=== PATIENT | male | born 1955 | race Caucasian/White ===

== ENCOUNTER 2017-04-13 14:53 | Inpatient (IN) | payer OTHER ==
[2017-04-13] MEDS ORDERED: LORazepam 2 MG/ML SYRINGE IV STA (16:35)
[2017-04-13] MEDS ORDERED: SODIUM CHLORIDE 0.9% 1,000 ML IV STA ×3 (16:35→19:18)
[2017-04-13] MEDS ORDERED: ONDANSETRON 4 MG/2 ML VIAL IVP STA (16:47)
--- NOTE | 2017-04-13 16:49 | ED ---
General Adult HPI - General Source: patient, RN notes reviewed Mode of arrival: wheelchair Limitations: no limitations <Diogenes Glez - Last Filed: 04/13/17 19:56> <Scott Dean - Last Filed: 04/13/17 20:24> - General Chief complaint: Recheck/Abnormal Lab/Rx Stated complaint: no appetite/weakness Time Seen by Provider: 04/13/17 16:27 - History of Present Illness Initial comments: Patient 61-year-old male significant past medical history for diabetes, who presents emergency room today with a chief complaint of symptoms of decreased appetite feeling weak and short of breath. He states shortness of breath is with exertion. He states it gets up and moves around he became immediately begins to feel more short of breath. Patient states that he has had symptoms of decreased appetite and some symptoms of nausea he denies any vomiting. He does admit that he's had some diarrhea. He denies any other complaints. Patient denies any recent fever, chills, chest pain, back pain, abdominal pain, nausea or vomiting, numbness or tingling, dysuria or hematuria, constipation, headaches or visual changes, or any other complaints. (Diogenes Glez) - Related Data Home Medications Medication Instructions Recorded Confirmed No Known Home Medications [No 04/13/17 04/13/17 Known Home Medications] Allergies Allergy/AdvReac Type Severity Reaction Status Date / Time No Known Allergies Allergy Verified 04/13/17 16:43 Review of Systems ROS Other: All systems not noted in ROS Statement are negative. <Diogenes Glez - Last Filed: 04/13/17 19:56> ROS Other: All systems not noted in ROS Statement are negative. <Scott Dean - Last Filed: 04/13/17 20:24> ROS Statement: Those systems with pertinent positive or pertinent negative responses have been documented in the HPI. Past Medical History Past Medical History: Diabetes Mellitus History of Any Multi-Drug Resistant Organisms: None Reported Past Psychological History: No Psychological Hx Reported Smoking Status: Never smoker Past Alcohol Use History: Abuse, Daily, Heavy Past Drug Use History: None Reported <Diogenes Glez - Last Filed: 04/13/17 19:56> General Exam Limitations: no limitations <Diogenes Glez - Last Filed: 04/13/17 19:56> <Scott Dean - Last Filed: 04/13/17 20:24> - General Exam Comments Initial Comments: General: The patient is awake and alert, in no distress, and does not appear acutely ill. Eye: Pupils are equal, round and reactive to light, extra-ocular movements are intact. No nystagmus. There is normal conjunctiva bilaterally. No signs of icterus. Ears, nose, mouth and throat: There are moist mucous membranes and no oral lesions. Neck: The neck is supple, there is no tenderness or JVD. Cardiovascular: There is a regular rate and rhythm. No murmur, rub or gallop is appreciated. Respiratory: Lungs are clear to auscultation, respirations are non-labored, breath sounds are equal. No wheezes, stridor, rales, or rhonchi. Gastrointestinal: Soft, non-distended, non-tender abdomen without masses or organomegaly noted. There is no rebound or guarding present. No CVA tenderness. Bowel sounds are unremarkable. Musculoskeletal: Normal ROM, no tenderness. Strength 5/5. Sensation intact. Pulses equal bilaterally 2+. Neurological: A&O x 3. CN II-XII intact, There are no obvious motor or sensory deficits. Coordination appears grossly intact. Speech is normal. Skin: Skin is warm and dry and no rashes or lesions are noted. Psychiatric: Cooperative, appropriate mood & affect, normal judgment. : Stage 1 ulcer to the rectum. (Diogenes Glez) EKG Findings - EKG Comments: EKG Findings:: EKG performed at 1805: Shows normal sinus rhythm at 87 bpm. SD interval 130. QRS 90. QT/QTc 408/490. Prolonged QT. this change. No Acute ST changes. <Diogenes Glez - Last Filed: 04/13/17 19:56> Medical Decision Making - Lab Data Result diagrams: 04/13/17 18:00 04/13/17 18:00 <Diogenes Glez - Last Filed: 04/13/17 19:56> - Lab Data Result diagrams: 04/13/17 18:00 04/13/17 18:00 <Scott Dean - Last Filed: 04/13/17 20:24> - Medical Decision Making Decision-making. The patient's white count 33,000 hemoglobin 15 hematocrit of 41, INR is 1.1 the d-dimer 1.67. Potassium 3.8 with sodium 121 chloride 90 and CO2 12. His sugars 170. BUN 129 creatinine 4.5 dpt GFR 30. Total bilirubin 0.5. Troponin 0.09 amylase 79 lipase 338. Vital signs are stable upon arrival. The patient is being hydrated with normal saline 1 L. The case discussed with Dr. Dickson on-call gamemaster. He recommends normal saline with 2 A of bicarb added to the liter at 150 an hour , also consultation from general surgery for his buttocks that have [address] Antunez, personnel psychologist for acute pulmonary make renal failure. Patient states she's not had an alcoholic drink for over a week because she's not been able to get out of the house to buy it. She reports they've not been able to get into the home for the past week. Dr. Dean S x-ray was done and reviewed by radiologist his impression is there is nonspecific 2 cm opacity projecting over the lower thoracic vertebral bodies. Disc could simply represent summation of vascular shadows with degenerative disc hypertrophic changes but given the history and the fact that the there are no comparison radiographs would suggest nonurgent follow-up noncontrast chest CT characterization. Lungs otherwise clear pleural spaces are negative. No abnormal gas or collections. Cardiomediastinal silhouette bones and soft tissues are unremarkable. Impression; no acute cardiopulmonary process. However 2 cm opacity seen in the lateral radiograph for which nonemergent follow -up noncontrast chest CT is advised. As read by Dr. Master Berman X-ray of the abdomen was done reviewed radiologist impression nonspecific bowel pattern as discussed. No clyde bowel obstruction. Discussed Dr. Dickson patient admitted to his service with consultation from the Dr. Antunez (Scott Dean) - Lab Data Lab Results 04/13/17 04/13/17 04/13/17 Range/Units 18:00 18:00 18:00 WBC 33.5 H* (3.8-10.6) k/uL RBC 4.68 (4.30-5.90) m/uL Hgb 15.1 (13.0-17.5) gm/dL Hct 41.3 (39.0-53.0) % MCV 88.2 (80.0-100.0) fL MCH 32.2 (25.0-35.0) pg MCHC 36.5 (31.0-37.0) g/dL RDW 14.0 (11.5-15.5) % Plt Count 442 (150-450) k/uL Neutrophils % 91 % Lymphocytes % 3 % Monocytes % 4 % Eosinophils % 0 % Basophils % 0 % Neutrophils # 30.4 H (1.3-7.7) k/uL Lymphocytes # 1.1 (1.0-4.8) k/uL Monocytes # 1.2 H (0-1.0) k/uL Eosinophils # 0.0 (0-0.7) k/uL Basophils # 0.1 (0-0.2) k/uL Manual Slide Review Performed Toxic Granulation Present Toxic Vacuolation Present Large Platelets Present RBC Morphology Normal Hyperchromasia Slight PT (9.0-12.0) sec INR (<1.1) APTT (22.0-30.0) sec D-Dimer (<0.60) mg/L FEU Sodium 121 L (137-145) mmol/L Potassium 3.8 (3.5-5.1) mmol/L Chloride 90 L (98-107) mmol/L Carbon Dioxide 12 L (22-30) mmol/L Anion Gap 19 mmol/L BUN 129 H* (9-20) mg/dL Creatinine 4.59 H (0.66-1.25) mg/dL Est GFR (MDRD) Af Amer 16 (>60 ml/min/1.73 sqM) Est GFR (MDRD) Non-Af 13 (>60 ml/min/1.73 sqM) Glucose 170 H (74-99) mg/dL Calcium 8.8 (8.4-10.2) mg/dL Total Bilirubin 1.5 H (0.2-1.3) mg/dL AST 63 H (17-59) U/L ALT 61 (21-72) U/L Alkaline Phosphatase 112 (38-126) U/L Total Creatine Kinase 69 (55-170) U/L CK-MB (CK-2) 1.4 (0.0-2.4) ng/mL CK-MB (CK-2) Rel Index 2.0 Troponin I 0.029 (0.000-0.034) ng/mL Total Protein 7.3 (6.3-8.2) g/dL Albumin 3.2 L (3.5-5.0) g/dL Amylase 79 (30-110) U/L Lipase 338 H (23-300) U/L Serum Alcohol <10 mg/dL Acetone, Qual Negative (Negative) 04/13/17 Range/Units 18:00 WBC (3.8-10.6) k/uL RBC (4.30-5.90) m/uL Hgb (13.0-17.5) gm/dL Hct (39.0-53.0) % MCV (80.0-100.0) fL MCH (25.0-35.0) pg MCHC (31.0-37.0) g/dL RDW (11.5-15.5) % Plt Count (150-450) k/uL Neutrophils % % Lymphocytes % % Monocytes % % Eosinophils % % Basophils % % Neutrophils # (1.3-7.7) k/uL Lymphocytes # (1.0-4.8) k/uL Monocytes # (0-1.0) k/uL Eosinophils # (0-0.7) k/uL Basophils # (0-0.2) k/uL Manual Slide Review Toxic Granulation Toxic Vacuolation Large Platelets RBC Morphology Hyperchromasia PT 11.4 (9.0-12.0) sec INR 1.1 (<1.1) APTT 29.5 (22.0-30.0) sec D-Dimer 1.67 H (<0.60) mg/L FEU Sodium (137-145) mmol/L Potassium (3.5-5.1) mmol/L Chloride (98-107) mmol/L Carbon Dioxide (22-30) mmol/L Anion Gap mmol/L BUN (9-20) mg/dL Creatinine (0.66-1.25) mg/dL Est GFR (MDRD) Af Amer (>60 ml/min/1.73 sqM) Est GFR (MDRD) Non-Af (>60 ml/min/1.73 sqM) Glucose (74-99) mg/dL Calcium (8.4-10.2) mg/dL Total Bilirubin (0.2-1.3) mg/dL AST (17-59) U/L ALT (21-72) U/L Alkaline Phosphatase (38-126) U/L Total Creatine Kinase (55-170) U/L CK-MB (CK-2) (0.0-2.4) ng/mL CK-MB (CK-2) Rel Index Troponin I (0.000-0.034) ng/mL Total Protein (6.3-8.2) g/dL Albumin (3.5-5.0) g/dL Amylase (30-110) U/L Lipase (23-300) U/L Serum Alcohol mg/dL Acetone, Qual (Negative) Disposition Time of Disposition: 20:02 <Diogenes Glez - Last Filed: 04/13/17 19:56> <Scott Dean - Last Filed: 04/13/17 20:24> Clinical Impression: Hyponatremia, ARF (acute renal failure), Leukocytosis, Dehydration Disposition: ADMITTED IP TO THIS HOSP Condition: Stable Referrals: None,Stated [Primary Care Provider] - 1-2 days
[2017-04-13 18:26] LABS: Basophils # (A) 0.1 k/uL (0-0.2); Basophils % (A) 0 %; CH 33.7; CHCM 38.3; Eosinophils % (A) 0 %; HCT 41.3 % (39.0-53.0); HDW 2.45; HGB 15.1 gm/dL (13.0-17.5); Hyperchromasia Slight; Luc # (Auto) 0.64; Luc % (Auto) 2; Lymphocytes # (A) 1.1 k/uL (1.0-4.8); Lymphocytes % (A) 3 %; MCH 32.2 pg (25.0-35.0); MCHC 36.5 g/dL (31.0-37.0); MCV 88.2 fL (80.0-100.0); Mean Platelet Volume 10.1; Monocytes # (A) 1.2 k/uL (0-1.0); Monocytes % (A) 4 %; Neutrophils # (A) 30.4 k/uL (1.3-7.7); Neutrophils % (A) 91 %; RBC 4.68 m/uL (4.30-5.90); WBC (Perox) 34.94
[2017-04-13 18:29] LABS: WBC 33.5 k/uL (3.8-10.6)
[2017-04-13 18:34] LABS: INR 1.1 (<1.1); Partial Thromboplastin Time 29.5 sec (22.0-30.0); Prothrombin Time 11.4 sec (9.0-12.0)
[2017-04-13 18:44] LABS: ALT 61 U/L (21-72); AST 63 U/L (17-59); Alcohol <10 mg/dL; Alkaline Phosphatase 112 U/L (38-126); Amylase 79 U/L (30-110); Anion Gap 19 mmol/L; Calcium 8.8 mg/dL (8.4-10.2); Carbon Dioxide 12 mmol/L (22-30); Chloride 90 mmol/L (98-107); Glucose 170 mg/dL (74-99); Potassium 3.8 mmol/L (3.5-5.1); Sodium 121 mmol/L (137-145); Total Bilirubin 1.5 mg/dL (0.2-1.3); Total Protein 7.3 g/dL (6.3-8.2)
[2017-04-13 18:49] LABS: Creatine Kinase MB 1.4 ng/mL (0.0-2.4); Troponin I 0.029 ng/mL (0.000-0.034)
[2017-04-13 18:59] LABS: Large Platelets Present; Manual Review Performed; Toxic Granulation Present; Toxic Vacuolation Present
[2017-04-13 19:00] LABS: RBC Morphology Normal
[2017-04-13 19:02] LABS: Blood Urea Nitrogen 129 mg/dL (9-20); Non-African American GFR(MDRD) 13 (>60 ml/min/1.73 sqM)
[2017-04-13] MEDS ORDERED: LORazepam 2 MG/ML SYRINGE IV PRN (19:50)
[2017-04-13] MEDS ORDERED: NALOXONE 0.4 MG/ML 1 ML VIAL IV PRN (19:50)
[2017-04-13] MEDS ORDERED: ACETAMINOPHEN TAB 325 MG TAB PO PRN (19:50)
[2017-04-13] MEDS ORDERED: HYDROmorphone 1 MG/ML 1 ML SYRINGE IV PRN (19:50)
[2017-04-13] MEDS ORDERED: HYDROcodone/APAP 5-325MG 1 EACH TAB PO PRN (19:50)
[2017-04-13] MEDS ORDERED: SODIUM CHLORIDE 0.9% 1,000 ML with SODIUM BICARB (1 MEQ/ML) 100 ML IV STA ×2 (19:58)
--- NOTE | 2017-04-13 20:12 | XR ---
EXAMINATION TYPE: XR chest 2V DATE OF EXAM: 04/13/2017 COMPARISON: NONE HISTORY: Occasional dyspnea, decreased appetite TECHNIQUE: Frontal and lateral views of the chest are obtained. FINDINGS: There is a nonspecific 2 cm opacity projecting over the lower thoracic vertebral bodies. D isc could simply represent summation vascular shadows with degenerative disc hypertrophic changes, bu t given the history and the fact that there are no comparison radiographs - would suggest nonurgent f ollow-up noncontrast chest CT characterization. Lungs are otherwise clear. Pleural spaces are negative. No abnormal gas or fluid collections. Cardiom ediastinal silhouette and bones and soft tissues are unremarkable. IMPRESSION: 1. No acute cardiopulmonary process. 2. However, 2 cm opacity seen on the lateral radiograph for which nonemergent follow-up noncontrast c hest CT is advised.
--- NOTE | 2017-04-13 20:16 | XR ---
EXAMINATION TYPE: XR KUB DATE OF EXAM: 04/13/2017 COMPARISON: NONE HISTORY: Pain TECHNIQUE: 2 supine views FINDINGS: There is gaseous distention, without dilation, of small and large bowel loops throughout th e mid abdomen and upper quadrants - but no clyde bowel obstruction. There is no evident pneumatosis. However, this supine study cannot exclude pneumoperitoneum. IMPRESSION: Nonspecific bowel pattern as discussed.
[2017-04-13 20:41] LABS: Appearance,Urine Turbid (Clear); Bacteria,Urine Many /hpf; Bilirubin,Urine Negative (Negative); Glucose,Urine (UA) Negative (Negative); Ketones,Urine Negative (Negative); Leukocyte Esterase,Urine Large (Negative); Mucus,Urine Few /hpf; Nitrite,Urine Negative (Negative); PH, Urine 5.5 (5.0-8.0); Particle Count 54920; Protein,Urine 1+ (Negative); RBC,Urine 12 /hpf (0-5); Specific Gravity,Urine 1.014 (1.001-1.035); UA Billing (MACRO vs. MICRO) MICRO; Urobilinogen,Urine <2.0 mg/dL (<2.0); WBC,Urine >182 /hpf (0-5)
[2017-04-13 23:10] VITALS: BMI 21.9
[2017-04-14 07:19] LABS: Glucose,Whole Blood 152 mg/dL (75-99)
[2017-04-14 08:32] LABS: CH 32.9; CHCM 36.5; HCT 35.6 % (39.0-53.0); HDW 2.45; HGB 12.8 gm/dL (13.0-17.5); MCH 32.6 pg (25.0-35.0); MCV 90.5 fL (80.0-100.0); Mean Platelet Volume 9.6; RBC 3.93 m/uL (4.30-5.90); RDW 13.9 % (11.5-15.5)
[2017-04-14] MEDS: INSULIN LISPRO (humaLOG) 300 UNIT/3 ML VIAL SQ SCH ×4 (08:36→21:53)
[2017-04-14 08:40] LABS: WBC 25.3 k/uL (3.8-10.6)
[2017-04-14 08:49] LABS: Calcium 7.7 mg/dL (8.4-10.2); Potassium 3.6 mmol/L (3.5-5.1); Total Bilirubin 1.3 mg/dL (0.2-1.3)
[2017-04-14 10:55] LABS: Hemoglobin A1C 6.2 % (4.2-6.1)
[2017-04-14 12:01] LABS: Glucose,Whole Blood 213 mg/dL (75-99)
[2017-04-14 12:02] LABS: Add Differential Manual Differential
[2017-04-14 12:05] LABS: Nucleated Red Blood Cells 0 /100 WBC (0-0); Total Cells Counted 200
--- NOTE | 2017-04-14 17:38 | P.GSCN ---
History of Present Illness Consult date: 04/14/17 Reason for Consult: Rectal decubitus. History of present illness: Thank you very much for asking me to see Mr. Spencer. He is known to me from previous colon resection. He is a 61-year-old white male who about 8 years ago underwent a low anterior sigmoid resection for a localized malignancy. He had done well subsequently with no evidence of recurrent disease. His last colonoscopy was at least about 3-4 years ago. Was always accompanied by a parent during his office visits and the procedures. States the stent his been living on his own. He resorted to allow for drinking at least for the last 5-6 years now of alcohol up more than 12 pack a day of beer. He basically lives alone but has the uncle and aunts nearby. He has been managing all along. However he states over the last week and a half or so his appetite has been diminished. His been feeling very weak. Some nausea. Stools the have been semi-soft to 3 times a day but not a lot of diarrhea. He has been voiding fairly well. Again denies any abdominal pain. He was found when examined in the emergency room to have evidence of the renal failure. He was admitted for further management. He was found to have evidence of what looks like an ulcer in the anorectal area. She denies any rectal pain no blood. Does however has had some urgency and sometimes leakage the specimen his stools are liquid. Admits some mild weight loss over the last 2 months or so. He has felt so weak that is is mostly confined himself to the bed or couch Past history as above. Positive for diabetes mellitus. Ethanol abuse.. Social history as above. ALLERGIES none known. Systems review as above. Otherwise reviewed and unremarkable. On examination the patient is well-built. Weighs about 73.5 kg. Used to be quite dehydrated mucous membranes are dry. Color satisfactory. He is anicteric. No cervical lymphadenopathy head is normocephalic. Heart regular rhythm. Lungs are clear. Abdomen shows a midline scar. No mass or organomegaly or hernias. Abdomen is quite soft and benign. No guarding or rebound. No mass or hernia or organomegaly noted. Rectal exam reveals no definite the mass prostate is quite large but smooth. Has some excoriation and irritation of the perianal skin. No definite abscess or evidence of gross infection noted. Extremities and [employer] are unremarkable no focal deficits. Does have significant tremors especially his upper extremities. Labs were reviewed. WBC is quite elevated to over 33,000. Hemoglobin is normal. LFTs are abnormal with bilirubin of 1.5 has hyponatremia. Evidence of renal failure quite elevated BUN/creatinine creatinine. PT and PTT are normal. Abdominal films showed nonspecific bowel gas pattern. No free air or obstruction or ileus noted. Impression. Perianal skin excoriation probably secondary to irritation from frequent bowel movements constant wiping. Poor Hygiene. No evidence of abscess. Anorexia. Probably alcoholic hepatitis. Renal failure maybe prerenal sec secondary to dehydration. Diabetes mellitus. Recommendation. Local care of the perianal excoriation and irritation. No evidence of neoplasm or malignancy or abscess. Very with the nephrology consult. Continue rehydration. Consider the CT of the abdomen and pelvis when renal function has improved. We will be glad to follow along with you. Past Medical History Past Medical History: Diabetes Mellitus History of Any Multi-Drug Resistant Organisms: None Reported Additional Past Surgical History / Comment(s): colon sx in 2007 Past Psychological History: No Psychological Hx Reported Smoking Status: Never smoker Past Alcohol Use History: Abuse, Daily, Heavy Past Drug Use History: None Reported - Past Family History Mother Family Medical History: Diabetes Mellitus Father Family Medical History: Diabetes Mellitus Medications and Allergies Home Medications Medication Instructions Recorded Confirmed Type No Known Home Medications [No 04/13/17 04/13/17 History Known Home Medications] Allergies Allergy/AdvReac Type Severity Reaction Status Date / Time No Known Allergies Allergy Verified 04/13/17 16:43 Surgical - Exam Vital Signs Temp Pulse Resp BP Pulse Ox 97.5 F L 94 20 114/70 97 04/13/17 15:08 04/13/17 15:08 04/13/17 15:08 04/13/17 15:08 04/13/17 15:08 Results - Labs 04/14/17 07:46 04/14/17 07:46 Abnormal Lab Results - Last 24 Hours (Table) 04/13/17 04/13/17 04/13/17 Range/Units 18:00 18:00 18:00 WBC 33.5 H* (3.8-10.6) k/uL RBC (4.30-5.90) m/uL Hgb (13.0-17.5) gm/dL Hct (39.0-53.0) % Neutrophils # 30.4 H (1.3-7.7) k/uL Neutrophils # (Manual) (1.3-7.7) k/uL Lymphocytes # (Manual) (1.0-4.8) k/uL Monocytes # 1.2 H (0-1.0) k/uL Monocytes # (Manual) (0-1.0) k/uL D-Dimer 1.67 H (<0.60) mg/L FEU Sodium 121 L (137-145) mmol/L Chloride 90 L (98-107) mmol/L Carbon Dioxide 12 L (22-30) mmol/L BUN 129 H* (9-20) mg/dL Creatinine 4.59 H (0.66-1.25) mg/dL Glucose 170 H (74-99) mg/dL POC Glucose (mg/dL) (75-99) mg/dL Hemoglobin A1c (4.2-6.1) % Calcium (8.4-10.2) mg/dL Total Bilirubin 1.5 H (0.2-1.3) mg/dL AST 63 H (17-59) U/L Total Protein (6.3-8.2) g/dL Albumin 3.2 L (3.5-5.0) g/dL Lipase 338 H (23-300) U/L Urine Protein (Negative) Urine Blood (Negative) Ur Leukocyte Esterase (Negative) Urine RBC (0-5) /hpf Urine WBC (0-5) /hpf Urine WBC Clumps (None) /hpf Urine Bacteria (None) /hpf Urine Mucus (None) /hpf 04/13/17 04/14/17 04/14/17 Range/Units 20:16 07:05 07:46 WBC 25.3 H* (3.8-10.6) k/uL RBC 3.93 L (4.30-5.90) m/uL Hgb 12.8 L (13.0-17.5) gm/dL Hct 35.6 L (39.0-53.0) % Neutrophils # (1.3-7.7) k/uL Neutrophils # (Manual) 23.4 H (1.3-7.7) k/uL Lymphocytes # (Manual) 0.3 L (1.0-4.8) k/uL Monocytes # (0-1.0) k/uL Monocytes # (Manual) 1.6 H (0-1.0) k/uL D-Dimer (<0.60) mg/L FEU Sodium (137-145) mmol/L Chloride (98-107) mmol/L Carbon Dioxide (22-30) mmol/L BUN (9-20) mg/dL Creatinine (0.66-1.25) mg/dL Glucose (74-99) mg/dL POC Glucose (mg/dL) 152 H (75-99) mg/dL Hemoglobin A1c (4.2-6.1) % Calcium (8.4-10.2) mg/dL Total Bilirubin (0.2-1.3) mg/dL AST (17-59) U/L Total Protein (6.3-8.2) g/dL Albumin (3.5-5.0) g/dL Lipase (23-300) U/L Urine Protein 1+ H (Negative) Urine Blood Moderate H (Negative) Ur Leukocyte Esterase Large H (Negative) Urine RBC 12 H (0-5) /hpf Urine WBC >182 H (0-5) /hpf Urine WBC Clumps Many H (None) /hpf Urine Bacteria Many H (None) /hpf Urine Mucus Few H (None) /hpf 04/14/17 04/14/17 04/14/17 Range/Units 07:46 07:46 11:47 WBC (3.8-10.6) k/uL RBC (4.30-5.90) m/uL Hgb (13.0-17.5) gm/dL Hct (39.0-53.0) % Neutrophils # (1.3-7.7) k/uL Neutrophils # (Manual) (1.3-7.7) k/uL Lymphocytes # (Manual) (1.0-4.8) k/uL Monocytes # (0-1.0) k/uL Monocytes # (Manual) (0-1.0) k/uL D-Dimer (<0.60) mg/L FEU Sodium 128 L (137-145) mmol/L Chloride 97 L (98-107) mmol/L Carbon Dioxide 19 L (22-30) mmol/L BUN 113 H* (9-20) mg/dL Creatinine 3.82 H (0.66-1.25) mg/dL Glucose 137 H (74-99) mg/dL POC Glucose (mg/dL) 213 H (75-99) mg/dL Hemoglobin A1c 6.2 H (4.2-6.1) % Calcium 7.7 L (8.4-10.2) mg/dL Total Bilirubin (0.2-1.3) mg/dL AST (17-59) U/L Total Protein 6.0 L (6.3-8.2) g/dL Albumin 2.5 L (3.5-5.0) g/dL Lipase 440 H (23-300) U/L Urine Protein (Negative) Urine Blood (Negative) Ur Leukocyte Esterase (Negative) Urine RBC (0-5) /hpf Urine WBC (0-5) /hpf Urine WBC Clumps (None) /hpf Urine Bacteria (None) /hpf Urine Mucus (None) /hpf Diabetes panel 04/13/17 04/14/17 04/14/17 Range/Units 18:00 07:46 07:46 Sodium 121 L 128 L (137-145) mmol/L Potassium 3.8 3.6 (3.5-5.1) mmol/L Chloride 90 L 97 L (98-107) mmol/L Carbon Dioxide 12 L 19 L (22-30) mmol/L BUN 129 H* 113 H* (9-20) mg/dL Creatinine 4.59 H 3.82 H (0.66-1.25) mg/dL Glucose 170 H 137 H (74-99) mg/dL Hemoglobin A1c 6.2 H (4.2-6.1) % Calcium 8.8 7.7 L (8.4-10.2) mg/dL AST 63 H 42 (17-59) U/L ALT 61 53 (21-72) U/L Alkaline Phosphatase 112 86 (38-126) U/L Total Protein 7.3 6.0 L (6.3-8.2) g/dL Albumin 3.2 L 2.5 L (3.5-5.0) g/dL Calcium panel 04/13/17 04/14/17 Range/Units 18:00 07:46 Calcium 8.8 7.7 L (8.4-10.2) mg/dL Albumin 3.2 L 2.5 L (3.5-5.0) g/dL Pituitary panel 04/13/17 04/14/17 Range/Units 18:00 07:46 Sodium 121 L 128 L (137-145) mmol/L Potassium 3.8 3.6 (3.5-5.1) mmol/L Chloride 90 L 97 L (98-107) mmol/L Carbon Dioxide 12 L 19 L (22-30) mmol/L BUN 129 H* 113 H* (9-20) mg/dL Creatinine 4.59 H 3.82 H (0.66-1.25) mg/dL Glucose 170 H 137 H (74-99) mg/dL Calcium 8.8 7.7 L (8.4-10.2) mg/dL Adrenal panel 04/13/17 04/14/17 Range/Units 18:00 07:46 Sodium 121 L 128 L (137-145) mmol/L Potassium 3.8 3.6 (3.5-5.1) mmol/L Chloride 90 L 97 L (98-107) mmol/L Carbon Dioxide 12 L 19 L (22-30) mmol/L BUN 129 H* 113 H* (9-20) mg/dL Creatinine 4.59 H 3.82 H (0.66-1.25) mg/dL Glucose 170 H 137 H (74-99) mg/dL Calcium 8.8 7.7 L (8.4-10.2) mg/dL Total Bilirubin 1.5 H 1.3 (0.2-1.3) mg/dL AST 63 H 42 (17-59) U/L ALT 61 53 (21-72) U/L Alkaline Phosphatase 112 86 (38-126) U/L Total Protein 7.3 6.0 L (6.3-8.2) g/dL Albumin 3.2 L 2.5 L (3.5-5.0) g/dL
[2017-04-14 17:43] LABS: Glucose,Whole Blood 133 mg/dL (75-99)
[2017-04-14] MEDS: DIAZEPAM 2 MG TAB PO SCH ×2 (17:43→21:56)
[2017-04-14] MEDS: SODIUM CHLORIDE 0.9% 1,000 ML IV SCH ×2 (17:44→20:24)
--- NOTE | 2017-04-14 19:40 | HP ---
DATE OF ADMISSION: 04/13/2017 PRESENTING COMPLAINT: Weak, tired, nausea, vomiting. HISTORY OF PRESENTING COMPLAINT: This is a 61-year-old patient with no family doctor. Longstanding history of diabetes, who drinks about a 12-pack a day and has not drank for about 5 or 6 days. He is feeling tired, rundown. No appetite. Presents to the ER, had a low grade fever with white count of 33.5, found to be in severe renal failure with BUN of 129, creatinine of 4.59. Sodium down to 121 and urine infection. Patient has some tremors, tired, decreased appetite. REVIEW OF SYSTEMS: CONSTITUTIONAL: Weak, tired, decreased appetite. HEENT: None. RESPIRATORY: Some shortness of breath. CARDIOVASCULAR: None. GASTROINTESTINAL: None. GENITOURINARY: Decreased urine output. MUSCULOSKELETAL: None. DERMATOLOGICAL: None. HEMATOLOGICAL: None. LYMPHATIC: None. PSYCHIATRY: Anxious. NEUROLOGICAL: Some tremors. PAST HISTORY: Diabetes. PAST SURGICAL HISTORY: Colon surgery. SOCIAL HISTORY: Lives by himself. Drinks about a 12-pack a day. Denies smoking. No recreational drugs. Patient is not working anymore. FAMILY HISTORY: Diabetes. HOME MEDICATIONS: None. ALLERGIES: None. PHYSICAL EXAMINATION: Vital signs on presentation: Temperature 97.5, pulse 94, respirations 20, blood pressure 104/70, pulse ox 97% on room air. GENERAL APPEARANCE: Very unkempt lying in bed and tremors. EYES: Pupils equal. Conjunctivae normal. HEENT: External appearance of nose and ears normal. Oral cavity normal. NECK: JVD not raised. Mass not with the above. RESPIRATORY: Effort normal. LUNGS: Decreased breath sounds. CARDIOVASCULAR: First and second sounds normal. No edema. ABDOMEN: Soft, nontender. Liver and spleen not palpable. LYMPHATIC: No lymph node. PSYCHIATRY: Alert and oriented. Mood and affect ( ). MUSCULOSKELETAL: Generalized tremors are present. INVESTIGATIONS: White count 13.5, hemoglobin 15.1. Potassium 3.8. Sodium 121, BUN 129, creatinine 4.59, glucose 170, amylase 79, lipase 338. UA positive for leukocyte esterase, WBC. ASSESSMENT: 1. Acute urinary tract infection and possibly sepsis with some element of demargination from volume contraction. 2. Lipase increased likely from poor renal clearance in the setting of renal failure. 3. Hypoalbuminemia likely from protein calorie malnutrition, moderate. 4. Alcoholic hepatitis. AST is up to 63. 5. Acute severe renal failure, probably combination of prerenal acute tubular necrosis with poor oral intake. 6. Metabolic acidosis. 7. Hyponatremia, likely hypoosmolar in an alcoholic with probably diminished salt intake. PLAN: Patient was put on IV ceftriaxone. Patient will be given normal saline. Cut back on free fluid. Also add dose of valium 2 mg 3 times a day for tremors and a small dose of beta maryana. Encourage oral intake. Follow renal function closely. Care was discussed with the patient.
--- NOTE | 2017-04-14 20:16 | CONS ---
DATE OF CONSULTATION: 04/14/2017 REASON FOR CONSULTATION: Renal failure and hyponatremia. HISTORY OF PRESENT ILLNESS: Patient is a 61-year-old white male who was admitted to the hospital with complaints of weakness, shortness of breath, not feeling well. He was noted to have a serum creatinine of 4.59 mg/dL on admission and sodium of 121, maintained on normal saline and sodium improved to 128, creatinine down to 3.82. The patient states he has been voiding. He denies any prior history of kidney diseases. He does have a significant history of alcohol use. PAST MEDICAL HISTORY: Type 2 diabetes. ALLERGIES: None. SOCIAL HISTORY: Negative for smoking, but there is positive history of alcohol use. REVIEW OF SYSTEMS: As per HPI. Other systems negative. On examination, blood pressure is 131/70, heart rate of 72 per minute. Patient has been afebrile; however, he was noted to have a temp of 100.9 later on today. Examination of the heart: S1 and S2. Examination of the lungs: Bilateral breath sounds are heard. Abdomen is soft, nontender. Examination of lower extremities shows no edema. NUCLEAR EQUIPMENT RESEARCH ENGINEER exam is grossly intact. Labs show sodium 128, potassium 3.6, BUN 113, serum creatinine 3.82. Hemoglobin was at 12.8 g/dL. UA shows 1+ protein, more than 182 WBCs. Chest x-ray showed no major abnormalities except for 2 cm opacity seen over the lower thoracic vertebral body. ASSESSMENT: 1. Acute kidney injury, most likely prerenal, currently improved with IV fluids. Continue with aggressive IV hydration. Patient has been voiding well. He denies any prior history of kidney diseases; however, previous creatinine is not available for comparison. 2. Hypovolemic hyponatremia, improved with saline. Will continue with the saline for now. In view of patient having had a history of significant alcohol abuse, one would consider beer potomania as one of the etiologies for the hyponatremia, but the patient's serum sodium would not improve with saline in that condition. In the serum sodium does not improve, I will send a random urine sodium and urine osmolality but so far as it has significantly improved we are most likely dealing with hypervolemic hyponatremia. 3. Elevated white count and low-grade temperature mostly secondary to underlying urinary tract infection. We will make sure urine culture has been sent. It looks like patient has been started on Rocephin. PLAN: Check urine culture. Continue with the IV fluids. Repeat labs in the a.m. Continue with empiric antibiotics. Thank you for this consultation. Will continue to follow the patient with you during his hospitalization. Check an ultrasound of the abdomen as well.
[2017-04-14] MEDS: METOPROLOL TARTRATE 12.5 MG TAB PO SCH (20:24)
[2017-04-14 21:19] LABS: Glucose,Whole Blood 177 mg/dL (75-99)
[2017-04-15] MEDS: SODIUM CHLORIDE 0.9% 1,000 ML IV SCH (04:52)
[2017-04-15 07:27] LABS: Glucose,Whole Blood 133 mg/dL (75-99)
--- NOTE | 2017-04-15 08:45 | P.PN ---
Progress Note - Text The patient is feeling much better having received IV fluids. His tolerating regular diet. Denies any abdominal pain. No diarrhea rule out bowel movements the since his admission. Is passing a lot of flatus. Denies nausea or vomiting now. No rectal pain. Examination the patient is awake alert in no distress. Hydration is better. Abdomen is quite soft the nontender no masses or organomegaly. Impression general improvement. Blood works pending. Renal failure probably secondary to dehydration. Ethanol abuse. Hepatic insufficiency. Recommendation. Continued rehydration. Continued medical management. Continued medical management of his anal irritation. Encouraged ambulation.
[2017-04-15 09:11] LABS: Basophils % (A) 0 %; CH 32.6; Eosinophils % (A) 0 %; HCT 31.9 % (39.0-53.0); HDW 2.42; HGB 11.2 gm/dL (13.0-17.5); Luc # (Auto) 0.29; Luc % (Auto) 1; Lymphocytes # (A) 0.5 k/uL (1.0-4.8); Lymphocytes % (A) 2 %; MCH 31.9 pg (25.0-35.0); MCHC 35.2 g/dL (31.0-37.0); MCV 90.7 fL (80.0-100.0); Mean Platelet Volume 9.2; Monocytes # (A) 0.8 k/uL (0-1.0); Monocytes % (A) 4 %; Neutrophils # (A) 19.5 k/uL (1.3-7.7); Neutrophils % (A) 93 %; RBC 3.52 m/uL (4.30-5.90); RDW 13.9 % (11.5-15.5); WBC 21.1 k/uL (3.8-10.6); WBC (Perox) 22.57
[2017-04-15 09:13] LABS: Calcium 6.9 mg/dL (8.4-10.2); Potassium 3.4 mmol/L (3.5-5.1)
--- NOTE | 2017-04-15 09:45 | US ---
EXAMINATION TYPE: US kidneys/renal and bladder DATE OF EXAM: 04/15/2017 COMPARISON: NONE CLINICAL HISTORY: renal failure. Patient states no pain. Hx of colon cancer, surgery in 2007 EXAM MEASUREMENTS: Right Kidney: 13.2 x 9.0 x 6.2 cm Left Kidney: 11.3 x 5.9 x 5.2 cm Asked patient to urinate, unable to void. Right Kidney: Enlarged. Severe hydronephrosis Left Kidney: Severe hydronephrosis Bladder: Distended. Debris seen in posterior bladder. Patient unable to void. Bilateral Jets not seen Prostate seen, best visualized transversely. Shadowing echogenic focus seen. IMPRESSION: 1. Bilateral severe hydronephrosis. 2. Bladder is distended which contains a fluid fluid level which may represent debris. Correlate for infection or previous hemorrhage. 3. Limited assessment of the prostate which appears to demonstrate areas of calcification.
[2017-04-15] MEDS: METOPROLOL TARTRATE 12.5 MG TAB PO SCH ×2 (10:35→22:47)
[2017-04-15] MEDS: DIAZEPAM 2 MG TAB PO SCH ×3 (10:35→22:46)
[2017-04-15] MEDS: INSULIN LISPRO (humaLOG) 300 UNIT/3 ML VIAL SQ SCH ×4 (10:36→22:48)
[2017-04-15] MEDS: ENOXAPARIN 30 MG/0.3 ML SYRINGE SQ SCH (10:36)
[2017-04-15 11:16] LABS: Amorphous Sediment,Urine Rare /hpf; Appearance,Urine Turbid (Clear); Bacteria,Urine Many /hpf; Bilirubin,Urine Negative (Negative); Glucose,Urine (UA) Negative (Negative); Ketones,Urine Negative (Negative); Leukocyte Esterase,Urine Large (Negative); Nitrite,Urine Positive (Negative); PH, Urine 5.5 (5.0-8.0); Particle Count 47508; Protein,Urine 1+ (Negative); RBC,Urine 22 /hpf (0-5); Specific Gravity,Urine 1.013 (1.001-1.035); UA Billing (MACRO vs. MICRO) MICRO; Urobilinogen,Urine <2.0 mg/dL (<2.0); WBC,Urine >182 /hpf (0-5)
[2017-04-15 12:30] LABS: Glucose,Whole Blood 196 mg/dL (75-99)
[2017-04-15] MEDS ORDERED: OXYBUTYNIN CHLORIDE 5 MG TAB PO STA (14:35)
[2017-04-15 15:23] LABS: Potassium 3.3 mmol/L (3.5-5.1)
[2017-04-15] MEDS ORDERED: SODIUM CHLORIDE TAB 1 GM TAB PO STA (16:02)
[2017-04-15 17:09] LABS: Glucose,Whole Blood 133 mg/dL (75-99)
--- NOTE | 2017-04-15 19:52 | PN ---
DATE OF SERVICE: 04/15/2017 PRESENTING COMPLAINT: Weak, tired. INTERVAL HISTORY: Patient is admitted with acute urinary tract infection, severe sepsis, severe renal failure. Ultrasound has shown bilateral hydronephrosis. Patient has a To catheter in place. Looks a shade better. Sister is at the bedside. Review of systems done for constitutional, cardiovascular, GI, pulmonary; relevant findings as above. Patient ate 100% of his breakfast, a little bit of his lunch. Feeling extremely weak and tired. Current medications are reviewed and include IV ceftriaxone. On examination, temperature 96.9, pulse 59, respiration 16, blood pressure 149/87, pulse ox 98% on room air. GENERAL APPEARANCE: Lying in bed, tired appearing. EYES: Pupils equal. Conjunctivae normal. NECK: JVD not raised. Mass not palpable. RESPIRATORY: Effort normal. LUNGS: Decreased breath sounds. CARDIOVASCULAR: First and second sounds normal. No edema. ABDOMEN: Soft, nontender. Liver and spleen not palpable. PSYCHIATRY: Alert, oriented x3. Mood and affect tired -appearing. INVESTIGATIONS: White count 21.1, hemoglobin 9.2. Potassium 3.4. BUN 88, creatinine 3.07. UA positive. ASSESSMENT: 1. Acute urinary tract infection from possible sepsis, present on admission. 2. Hypoalbuminemic from protein calorie malnutrition, moderate. 3. Alcoholic hepatitis. 4. Acute renal failure with obstructive component and prerenal component with bilateral hydronephrosis. 5. Metabolic acidosis. 6. Hyponatremia likely hypoosmolar in an alcoholic with decreased salt intake. 7. Chronic alcoholism. 8. Medical debility, multifactorial. PLAN: Care was discussed with the patient's sister at the bedside. The patient's salt tablets have been added for the low sodium. Continue to follow electrolytes closely. Patient is already on ceftriaxone. Will follow.
[2017-04-15] MEDS ORDERED: POTASSIUM CHLORIDE ER 20 MEQ TAB.ER PO STA (20:24)
[2017-04-15 20:40] LABS: Glucose,Whole Blood 171 mg/dL (75-99)
--- NOTE | 2017-04-15 20:41 | PN ---
Patient is seen for follow-up for hyponatremia and acute kidney injury. He was admitted with a sodium of 121. Patient was maintained on IV fluids and his sodium came up to 128 after which he was restarted on saline at about 125 mL an hour. This morning his sodium went down to 123, the fluids were hep-locked earlier this morning and repeat sodium later on today was 126. Urine ( ) patient's ultrasound of the kidneys shows bilateral severe hydronephrosis and his bladder was quite distended with urine. A To catheter was placed and he has had about 1700 mL over the last 4 hours. There was some pus looking urine draining from the To catheter as well. On examination today, blood pressure was 121/71, heart rate 68 per minute. Patient is afebrile. Examination of the heart S1 and S2. Examination of the lungs: Bilateral breath sounds are heard. ABDOMEN: Soft, nontender. Examination of lower extremities shows no evidence of edema. COMPENSATION COORDINATOR exam is grossly intact. Labs revealed repeat serum sodium of 126, potassium 3.3. Hemoglobin was 11.2 on 04/15. ASSESSMENT: 1. Acute kidney acute kidney injury secondary to obstructive uropathy with an element of hypovolemia initially which has now improved. Patient has an indwelling To catheter. He has had large amount of urine output close to 1700 mL in the last 4 hours. Urology will be consulted. Continue with indwelling To catheter. 2. Hypokalemia will replace. 3. Hyponatremia initially hypovolemic and improved with normal saline. However, serum sodium worsened later on. This is highly suggestive of ( ). Patient's fluids will be hep-locked and I will start him on sodium chloride tablets. He is also encouraged to increase his oral protein intake. PLAN: Hep-Lock IV fluids. Start sodium chloride tabs. Consult urology. Continue with indwelling To catheter. Increase protein intake. Replace potassium.
[2017-04-15] MEDS: SODIUM CHLORIDE TAB 1 GM TAB PO SCH (22:46)
[2017-04-16 07:05] LABS: Glucose,Whole Blood 187 mg/dL (75-99)
--- NOTE | 2017-04-16 08:31 | P.PN ---
Progress Note - Text The patient continues to improve. His tolerating regular diet. Passing flatus. Denies abdominal pain. Ultrasound did show bilateral hydronephrosis with distention of the bladder. He now has a To catheter in place. He does admit to the dribbling or incomplete emptying his bladder. The last few months. On examination the patient is awake alert in no distress. Abdomen is soft and benign with no tenderness. Rectal irritation is much improved. No definite ulceration. Impression; renal failure. Probably secondary to the prostatic enlargement with bilateral hydronephrosis. Some degree of dehydration. Resolving rectal anal irritation. Recommendation; urology consultation. The bilateral hydronephrosis. Continued medical management. We will follow him now on an as-needed basis. He is advised to follow-up with me in the office in a few weeks after his discharge.
[2017-04-16] MEDS: SODIUM CHLORIDE TAB 1 GM TAB PO SCH ×2 (09:01→20:28)
[2017-04-16] MEDS: ENOXAPARIN 30 MG/0.3 ML SYRINGE SQ SCH (09:01)
[2017-04-16] MEDS: INSULIN LISPRO (humaLOG) 300 UNIT/3 ML VIAL SQ SCH ×4 (09:01→21:21)
[2017-04-16] MEDS: METOPROLOL TARTRATE 12.5 MG TAB PO SCH ×2 (09:01→20:28)
[2017-04-16] MEDS: DIAZEPAM 2 MG TAB PO SCH ×3 (09:11→21:21)
[2017-04-16 09:18] LABS: Calcium 7.4 mg/dL (8.4-10.2); Potassium 3.5 mmol/L (3.5-5.1)
[2017-04-16 12:41] LABS: Glucose,Whole Blood 167 mg/dL (75-99)
[2017-04-16] MEDS ORDERED: POTASSIUM CHLORIDE ER 20 MEQ TAB.ER PO STA (15:16)
--- NOTE | 2017-04-16 16:23 | PN ---
Patient is seen for followup for acute kidney injury and hyponatremia, initially hypovolemic and then worsened with normal saline, suggesting an element of beer potomania as well. Patient was found to have significant obstruction and bilateral hydronephrosis. To catheter was placed and he has had large amount of urine. Renal function has improved, with serum creatinine going down to 2.69 today from 4.59 on initial admission. Patient remains with a To catheter. He also has underlying urine infection with urine culture growing Gram-negative bacilli. On examination today, he is comfortable. Blood pressure is 109/60, heart rate 60 per minute. He is afebrile. EXAMINATION OF THE HEART: S1 and S2. EXAMINATION OF THE LUNGS: Bilateral breath sounds are heard. ABDOMEN: Soft, nontender. Examination of lower extremities shows no evidence of edema. SEAFOOD FISHERMAN exam is grossly intact. Labs show sodium 132, potassium 3.5, BUN 66, serum creatinine 2.69. ASSESSMENT: 1. Acute kidney injury secondary to obstructive uropathy with significant urine retention, currently improving with indwelling To catheter. Urology has been consulted. 2. Urinary tract infection with urine culture growing Gram-negative bacilli, maintained on Rocephin. 3. Hyponatremia, initially hypovolemic and then worsened with continued normal saline, suggesting an element of beer potomania. He is now maintained on sodium chloride 1 gram p.o. b.i.d., and sodium is up to 133 today. I will continue with the sodium chloride tablets and encourage increased oral intake. Avoid IV fluids for now. 4. Hypokalemia, status post replacement. PLAN: Continue sodium chloride. Will replace potassium and repeat labs in a.m.
[2017-04-16 17:16] LABS: Glucose,Whole Blood 143 mg/dL (75-99)
--- NOTE | 2017-04-16 20:15 | CONS ---
DATE OF CONSULTATION: 04/16/2017 REASON FOR CONSULTATION: Hydronephrosis and urinary retention. HISTORY: The patient is a 61-year-old male admitted through the emergency room on 04/13 for evaluation of shortness of breath, anorexia and loose bowel movements. At the time of admission, the patient had a white blood count of 33,500 and a urinalysis suggested a urinary tract infection. Sodium was 121. BUN was 129. Creatinine was 4.53. Lipase was 338. Patient was started on ceftriaxone. He has a history of alcohol abuse, and it was felt that at least a portion of his acute problem could be related to this. His creatinine fell to 3.82 on 04/14 and was 3.07 on 04/15. Urine sodium at that time was 19. Ultrasound of the kidneys and bladder on 04/15 showed relatively severe bilateral hydronephrosis and a distended bladder. A catheter was inserted and drained 1700 mL. Patient's creatinine today has fallen to 2.69. I was asked to see the patient due to the urinary retention and hydronephrosis. The patient denies any previous history of urinary retention. He says he normally voids every 4 to 5 hours during the day and 2 or 3 times at night. He describes a moderate urinary flow but is not always certain that he voids completely. Up until one week ago he was drinking 9 beers per day and had been drinking at approximately this level for the last year. He said he would experience periodic urge incontinence and had been wetting the bed for the last 4 to 6 weeks. He has no previous history of urinary tract infection, hematuria or urolithiasis. Patient's past medical history is significant in regard to diet-controlled diabetes mellitus. He has a history of colon cancer treated with low anterior resection by Dr. Harley approximately 8 years ago. He says he has had follow-up colonoscopy, and no recurrence has been noted. He has no history of hypertension, rheumatic fever, tuberculosis or hepatitis. Review of systems is significant mainly in regard to the above. The patient says over the last week instead of drinking beer he has been drinking 6 to 8 bottles of pop or water. SOCIAL HISTORY: The patient is single. He has not smoked since 1986. Physical exam reveals a 61-year-old male who is alert and oriented. Afebrile. Blood pressure 109/60. HEENT: No supraclavicular or cervical adenopathy. No scleral icterus. CHEST: Breathing is unlabored. ABDOMEN: No focal tenderness. There appears to be some slight hepatomegaly; however, there is no tenderness. GENITALIA: A urethral catheter is in place and is draining clear urine. Testicles are somewhat atrophic but are descended. RECTAL: Patient has been incontinent of stool, which is loose. His prostate is 1 to 2+ enlarged, smooth and benign in consistency. IMPRESSION: 1. Bilateral hydronephrosis secondary to urinary retention. By the patient's history, it is likely that he has been in retention for some time, as enuresis is relatively common in this setting. The patient's bladder overdistention is probably in part related to his large beer consumption. 2. Recent reduced appetite. It is unclear whether this could be related to pancreatitis. Patient's lipase appears to be elevated higher than expected just for his degree of renal failure. 3. Possible urinary tract infection. A urine culture is pending, but it was growing greater than 100,000 colonies of a Gram-negative nicanor. RECOMMENDATION: 1. Lipase will be rechecked to ensure that the patient does not have pancreatitis along with his other problems. 2. Once the patient's diarrhea and loose stools have subsided, I believe the patient would be better managed with self-catheterization. The patient will need to do the catheterization frequently enough so that his bladder does not distend beyond 15 to 20 ounces. At least at this time I would not suggest placing him on an alpha-maryana. 3. I am in agreement with the use of ceftriaxone pending results of the urine culture. Thank you for allowing me to participate in the care of this gentleman. CELESTE
[2017-04-16 20:42] LABS: Glucose,Whole Blood 178 mg/dL (75-99)
[2017-04-17 07:21] LABS: Glucose,Whole Blood 155 mg/dL (75-99)
--- NOTE | 2017-04-17 07:45 | PN ---
DATE OF SERVICE: 04/16/2017 PRESENTING COMPLAINT: Tired. INTERVAL HISTORY: Patient admitted with acute UTI. Severe sepsis, severe renal failure, bilateral hydronephrosis. The patient remains to have a To catheter in place. Making good urine output. Actually looks a bit better. Appetite is improving. Patient did get up and go to the bathroom once. Review of systems done for constitutional, cardiovascular, GI, pulmonary; relevant findings as above. Current medications are reviewed that include IV ceftriaxone. On examination, temperature 99.9, pulse 77, respiration 16, blood pressure 100/64, pulse ox 98% on room air. GENERAL APPEARANCE: Lying in bed, a bit more awake. EYES: Pupils equal. Conjunctivae normal. NECK: JVD not raised. Mass not palpable. RESPIRATORY: Effort normal. LUNGS: Decreased breath sounds. CARDIOVASCULAR: First and second sounds normal. No edema. ABDOMEN: Soft, nontender. Liver and spleen not palpable. PSYCHIATRY: Alert and oriented x3. Mood and affect normal. To catheter in place. INVESTIGATIONS: Sodium 132, potassium 3.5. BUN 66, creatinine 2.69. Accu-Cheks are noted. Lipase 753. ASSESSMENT: 1. Acute urinary tract infection with possible sepsis, present on admission. Cultures growing Klebsiella oxytoca. 2. Hypoalbuminemia from protein calorie malnutrition moderate from decreased oral intake. 3. Alcoholic hepatitis. 4. Acute renal failure with obstructive component and prerenal component with bilateral hydronephrosis, slow to respond. 5. Metabolic acidosis from renal failure. 6. Hyponatremia, likely hypoosmolar in an alcoholic, but decreased salt intake. 7. Chronic alcoholism. 8. Medical debility, multifactorial. 9. Bladder outlet obstruction. PLAN: Continue with medication and treatment plan. Patient encouraged to be out of bed. Follow electrolytes closely. Antibiotics are to continue.
[2017-04-17] MEDS: METOPROLOL TARTRATE 12.5 MG TAB PO SCH ×2 (08:03→21:04)
[2017-04-17] MEDS: DIAZEPAM 2 MG TAB PO SCH ×3 (08:03→21:04)
[2017-04-17] MEDS: SODIUM CHLORIDE TAB 1 GM TAB PO SCH (08:03)
[2017-04-17] MEDS: ENOXAPARIN 30 MG/0.3 ML SYRINGE SQ SCH (08:03)
[2017-04-17] MEDS: INSULIN LISPRO (humaLOG) 300 UNIT/3 ML VIAL SQ SCH ×4 (08:04→21:57)
[2017-04-17 08:44] LABS: Basophils % (A) 0 %; CH 32.4; CHCM 34.7; Eosinophils # (A) 0.1 k/uL (0-0.7); Eosinophils % (A) 1 %; HCT 34.1 % (39.0-53.0); HDW 2.49; HGB 11.7 gm/dL (13.0-17.5); Luc # (Auto) 0.21; Luc % (Auto) 3; Lymphocytes # (A) 0.6 k/uL (1.0-4.8); Lymphocytes % (A) 7 %; MCH 32.2 pg (25.0-35.0); MCHC 34.3 g/dL (31.0-37.0); MCV 93.6 fL (80.0-100.0); Mean Platelet Volume 8.9; Monocytes # (A) 0.4 k/uL (0-1.0); Monocytes % (A) 5 %; Neutrophils # (A) 6.7 k/uL (1.3-7.7); Neutrophils % (A) 84 %; RBC 3.64 m/uL (4.30-5.90); RDW 14.1 % (11.5-15.5); WBC 7.9 k/uL (3.8-10.6); WBC (Perox) 8.14
[2017-04-17 08:48] LABS: Calcium 7.4 mg/dL (8.4-10.2); Potassium 3.9 mmol/L (3.5-5.1)
[2017-04-17 12:19] LABS: Glucose,Whole Blood 135 mg/dL (75-99)
--- NOTE | 2017-04-17 13:51 | PN ---
Patient is seen for followup for hyponatremia and acute kidney injury secondary to obstructive uropathy. He has an indwelling To catheter with good urine output now. Renal function continues to improve. Sodium has improved to 135 today. Patient is maintained on sodium chloride tablets which I will decrease to once a day and eventually discontinue. On examination, blood pressure is 114/63, heart rate 73 per minute. He is afebrile. Examination of the heart, S1 and S2. Examination of the lungs, bilateral breath sounds are heard. Abdomen is soft, nontender. Examination of the lower extremities shows no evidence of edema. DIGITAL CIRCUIT DESIGNER exam is grossly intact. Labs show sodium 135, potassium 3.9, BUN 49, serum creatinine 2.19. Hemoglobin 11.7 g/dL. ASSESSMENT: 1. Acute kidney injury secondary to obstructive uropathy, currently with indwelling To catheter with improving renal function. 2. Urinary tract infection with urine culture growing Klebsiella, maintained on antibiotics. 3. Hyponatremia initially hypovolemic and then most likely secondary to beer potomania and renal failure, now improved. Patient is maintained on sodium chloride tablets twice a day. I will decrease that to once a day. He is encouraged to maintain good oral intake. PLAN: Decrease sodium chloride tablets to once a day and repeat labs in a.m. and maintain good oral intake.
--- NOTE | 2017-04-17 17:02 | P.PN ---
Progress Note - Text DATE OF SERVICE: 04/17/2017 PRESENTING COMPLAINT: Acute UTI, severe sepsis severe renal failure bilateral hydronephrosis. INTERVAL HISTORY: 61-year-old male with acute UTI, severe sepsis severe renal failure bilateral hydronephrosis. To catheter remains with good output. Patient looks better today comfortable in the bed, appetite is good eating almost 100% of his meals, walks to and from the bathroom and out of the hallway short distances, moving his bowels. REVIEW OF SYSTEMS: Done for constitutional ,cardiovascular, GI, pulmonary with relevant findings as above. CURRENT MEDICATIONS IV ceftriaxone, Lovenox, Ativan, Lopressor. PHYSICAL EXAM: VITAL SIGNS: 97.8, pulse 68 respiratory rate 18 blood pressure 106/66 oxygen saturation 98% on room air GENERAL APPEARANCE: . Lying in bed, appears comfortable. EYES: Pupils equal. Conjunctiva normal. NECK: JVD not raised. Mass not palpable. RESPIRATORY: Respiratory effort normal. Lungs diminished bases to auscultation. CARDIOVASCULAR: First and second sounds normal. No edema. ABDOMEN: Soft. Liver and spleen not palpable. Mild tenderness. No mass palpable. PSYCHIATRY: Alert and oriented x3. Mood and affect normal. INVESTIGATIONS: Hemoglobin 11.7, platelet count 258, sodium 135, BUN 49, creatinine 2.19 ASSESSMENT: Acute urinary tract infection with possible sepsis, present on admission. Cultures growing Klebsiella oxytoca Hypoalbuminemia from protein calorie malnutrition moderate from decreased oral intake. Alcoholic hepatitis. Acute renal failure with obstructive component and prerenal component of bilateral hydronephrosis slow to respond. Metabolic acidosis from renal failure. Hyponatremia likely hypoosmolar in an alcoholic but decrease salt intake. Chronic alcoholism. Medical debility, multifactorial. Bladder outlet obstruction. Hypokalemia PLAN: Continue with medication and treatment plan, follow electrolytes closely, antibiotic therapy continues. Discharge planning continues as well likely will go with family member upon discharge. TOP FRAME MAKER statement: Patient was seen and examined by nurse practitioner Janice Robbins in all elements of the case discussed with attending is Dr. Dickson
[2017-04-17 17:30] LABS: Glucose,Whole Blood 149 mg/dL (75-99)
[2017-04-17] MEDS: CEPHALEXIN 250 MG CAP PO SCH (21:04)
[2017-04-17 21:32] LABS: Glucose,Whole Blood 151 mg/dL (75-99)
--- NOTE | 2017-04-18 07:13 | PN ---
DATE OF SERVICE: 04/17/2017 ATTENDING NOTE: This patient was seen and examined by me earlier today. I reviewed the note of my nurse practitioner, Ms. Robbins. Reviewed, discussed, additional findings below. This is a patient with multiple problems including urinary tract infection, fever, sepsis, renal failure, bilateral hydronephrosis. Maintains to have a good urine output. Renal function is slowly improving. Did tolerate his diet. Did walk to the hallway. On examination, blood pressure 106/56. LUNGS: Decreased breath sounds. CARDIOVASCULAR: First and second sounds normal. Buttock area there is excoriation in the buttock cheeks. INVESTIGATIONS: BUN 49, creatinine 2.19. Accu-Cheks noted. ASSESSMENT: 1. Acute urinary tract infection, possible sepsis, growing Klebsiella oxytoca. 2. Acute renal failure with obstructive component and prerenal component with bilateral hydronephrosis, slow to respond. 3. Metabolic acidosis, renal failure. PLAN: Continue current and treatment plan. Patient encouraged to ambulate. Patient's Valium dose is being cut back from 1 mg to 3 times a day and also switch patient's IV ceftriaxone to Keflex. Continue to follow renal function closely.
[2017-04-18 07:40] LABS: Glucose,Whole Blood 106 mg/dL (75-99)
[2017-04-18] MEDS: INSULIN LISPRO (humaLOG) 300 UNIT/3 ML VIAL SQ SCH ×4 (08:00→21:35)
[2017-04-18 08:23] LABS: Calcium 7.4 mg/dL (8.4-10.2); Potassium 3.9 mmol/L (3.5-5.1)
[2017-04-18] MEDS: METOPROLOL TARTRATE 12.5 MG TAB PO SCH ×2 (08:51→21:35)
[2017-04-18] MEDS: CEPHALEXIN 250 MG CAP PO SCH ×3 (08:51→21:34)
[2017-04-18] MEDS: ENOXAPARIN 40 MG/0.4 ML SYRINGE SQ SCH (08:51)
[2017-04-18] MEDS: SODIUM CHLORIDE TAB 1 GM TAB PO SCH (08:52)
[2017-04-18] MEDS: DIAZEPAM 2 MG TAB PO SCH ×3 (08:54→21:34)
[2017-04-18 11:55] LABS: Glucose,Whole Blood 109 mg/dL (75-99)
--- NOTE | 2017-04-18 17:12 | P.PN ---
Progress Note - Text DATE OF SERVICE: 04/18/2017 PRESENTING COMPLAINT: Acute UTI, severe sepsis severe renal failure bilateral hydronephrosis. INTERVAL HISTORY: 61-year-old male with acute UTI, severe sepsis severe renal failure bilateral hydronephrosis. To catheter remains with good output. Patient does not look as good today, uncomfortable, having multiple loose stools, C. diff ordered , and will be sent. Able to tolerate some of his diet about 50%, ambulatory within the room given his current condition. REVIEW OF SYSTEMS: Done for constitutional ,cardiovascular, GI, pulmonary with relevant findings as above. CURRENT MEDICATIONS IV ceftriaxone, Lovenox, Ativan, Lopressor. PHYSICAL EXAM: VITAL SIGNS: Temperature 97.9, pulse 60 respiratory rate 18 blood pressure 125/68, oxygen saturation 98% on room air. GENERAL APPEARANCE: . Lying in bed, appears uncomfortable. EYES: Pupils equal. Conjunctiva normal. NECK: JVD not raised. Mass not palpable. RESPIRATORY: Respiratory effort normal. Lungs decreased bases to auscultation. CARDIOVASCULAR: First and second sounds normal. No edema. ABDOMEN: Soft. Liver and spleen not palpable. Mild tenderness. No mass palpable. PSYCHIATRY: Alert and oriented x3. Mood and affect normal. INTEGUMENT: Patient has a wound to his gluteal folds, bloody red tender for multiple wipings.. INVESTIGATIONS: Hemoglobin 11.7, platelet count 258, sodium 135, BUN 49, creatinine 2.19 ASSESSMENT: Acute urinary tract infection with possible sepsis, present on admission. Cultures growing Klebsiella oxytoca Hypoalbuminemia from protein calorie malnutrition moderate from decreased oral intake. Alcoholic hepatitis. Acute renal failure with obstructive component and prerenal component of bilateral hydronephrosis slow to respond. Metabolic acidosis from renal failure. Hyponatremia likely hypoosmolar in an alcoholic but decrease salt intake. Chronic alcoholism. Medical debility, multifactorial. Bladder outlet obstruction. Hypokalemia, resolved PLAN: Continue with medication and treatment plan, follow electrolytes closely, antibiotic therapy continues. Await results for C. diff test. Discharge planning continues as well likely will go with family member upon discharge. DISASSEMBLER statement: Patient was seen and examined by nurse practitioner Janice Robbins in all elements of the case discussed with attending is Dr. Dickson
[2017-04-18 17:24] LABS: Glucose,Whole Blood 103 mg/dL (75-99)
[2017-04-18 20:53] LABS: Glucose,Whole Blood 146 mg/dL (75-99)
[2017-04-19 07:42] LABS: Glucose,Whole Blood 181 mg/dL (75-99)
[2017-04-19] MEDS: METOPROLOL TARTRATE 12.5 MG TAB PO SCH ×2 (07:49→21:31)
[2017-04-19] MEDS: INSULIN LISPRO (humaLOG) 300 UNIT/3 ML VIAL SQ SCH ×4 (07:49→21:32)
[2017-04-19] MEDS: DIAZEPAM 2 MG TAB PO SCH ×3 (07:49→21:31)
[2017-04-19] MEDS: SODIUM CHLORIDE TAB 1 GM TAB PO SCH (07:49)
[2017-04-19] MEDS: ENOXAPARIN 40 MG/0.4 ML SYRINGE SQ SCH (07:49)
[2017-04-19] MEDS: CEPHALEXIN 250 MG CAP PO SCH ×3 (07:49→21:31)
[2017-04-19 09:28] LABS: Calcium 7.4 mg/dL (8.4-10.2); Potassium 3.5 mmol/L (3.5-5.1)
[2017-04-19 12:42] LABS: Glucose,Whole Blood 148 mg/dL (75-99)
--- NOTE | 2017-04-19 15:34 | PN ---
Patient is seen for follow-up for acute kidney injury secondary to obstructive uropathy and hyponatremia. His sodium level has improved. Patient is maintained on sodium chloride tablets which was discontinued. He was initially hypovolemic and then a component of ( ) was also present. This has resolved now with administration of saline and sodium chloride tabs. His renal function has improved significantly as well with insertion of To catheter. He currently has a urinary tract infection with Klebsiella oxytocin and is maintained on antibiotics. On examination, blood pressure is 104/63, heart rate 52 per minute. He is afebrile. Examination of the heart S1 and S2. Examination of the lungs: Bilateral breath sounds are heard. ABDOMEN: Soft, nontender. Examination of lower extremities shows no evidence of edema. 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 Labs show sodium 138, potassium 3.5, BUN 33, serum creatinine 1.82. ASSESSMENT: 1. Acute kidney injury secondary to obstructive uropathy with bilateral hydronephrosis, currently with indwelling To catheter, which patient will need to continue. He will follow up with urology as outpatient. 2. Hyponatremia initially hypovolemic on admission and then worsened with saline. There was a component of ( ) this has now resolved, particularly with resolution of renal failure as well, particularly with improvement of his renal function as well. I will continue to maintain the patient off of sodium chloride tablets. He is encouraged to maintain good oral protein intake. 3. Urinary tract infection with Klebsiella Oxytoca maintained on antibiotics now switched to p.o. Keflex. PLAN: The patient will need follow-up as outpatient for CKD . We will need to see where his renal function settles with resolution of his acute kidney injury.
[2017-04-19 17:47] LABS: Glucose,Whole Blood 88 mg/dL (75-99)
[2017-04-19 21:02] LABS: Glucose,Whole Blood 149 mg/dL (75-99)
--- NOTE | 2017-04-19 22:33 | P.PN ---
Progress Note - Text DATE OF SERVICE: 04/19/2017 PRESENTING COMPLAINT: Acute UTI, severe sepsis severe renal failure bilateral hydronephrosis. INTERVAL HISTORY: 61-year-old male with acute UTI, severe sepsis severe renal failure bilateral hydronephrosis. To catheter remains with good output. Patient appears more lively today, making jokes C. diff negative Able to tolerate some of his diet about 50%, ambulatory within the room. . Patient is going to attempt to walk in the hallway during the day today. REVIEW OF SYSTEMS: Done for constitutional ,cardiovascular, GI, pulmonary with relevant findings as above. CURRENT MEDICATIONS IV ceftriaxone, Lovenox, Ativan, Lopressor. PHYSICAL EXAM: VITAL SIGNS: 96.8 temperature, pulse 61 respirations 20 blood pressure 116/65 oxygen saturation 99% on room air. GENERAL APPEARANCE: . Lying in bed, appears comfortable. EYES: Pupils equal. Conjunctiva normal. NECK: JVD not raised. Mass not palpable. RESPIRATORY: Respiratory effort normal. Lungs decreased bases to auscultation. CARDIOVASCULAR: First and second sounds normal. No edema. ABDOMEN: Soft. Liver and spleen not palpable. Mild tenderness. No mass palpable. PSYCHIATRY: Alert and oriented x3. Mood and affect normal. INTEGUMENT: Patient has a wound to his gluteal folds, bloody red tender for multiple wipings.. INVESTIGATIONS: , BUN 33, creatinine 1.82 Accu-Cheks: 151, 146, 149. Sodium 138 ASSESSMENT: Acute urinary tract infection with possible sepsis, present on admission. Cultures growing Klebsiella oxytoca Hypoalbuminemia from protein calorie malnutrition moderate from decreased oral intake. Alcoholic hepatitis. Acute renal failure with obstructive component and prerenal component of bilateral hydronephrosis slow to respond. Metabolic acidosis from renal failure. Hyponatremia likely hypoosmolar in an alcoholic but decrease salt intake. Chronic alcoholism. Medical debility, multifactorial. Bladder outlet obstruction. Hypokalemia, resolved PLAN: Continue with medication and treatment plan, follow electrolytes closely, antibiotic therapy continues. . Discharge planning continues as well likely will go with family member upon discharge. SHADE MATCHER statement: Patient was seen and examined by nurse practitioner Janice Robbins in all elements of the case discussed with attending Dr. Dickson
[2017-04-20 07:16] LABS: Glucose,Whole Blood 106 mg/dL (75-99)
[2017-04-20] MEDS: CEPHALEXIN 250 MG CAP PO SCH ×3 (08:05→21:14)
[2017-04-20] MEDS: DIAZEPAM 2 MG TAB PO SCH ×3 (08:05→21:14)
[2017-04-20] MEDS: INSULIN LISPRO (humaLOG) 300 UNIT/3 ML VIAL SQ SCH ×4 (08:05→21:13)
[2017-04-20] MEDS: ENOXAPARIN 40 MG/0.4 ML SYRINGE SQ SCH (08:05)
[2017-04-20] MEDS: METOPROLOL TARTRATE 12.5 MG TAB PO SCH ×2 (08:05→21:14)
[2017-04-20 08:43] LABS: Basophils % (A) 0 %; CH 31.8; CHCM 33.6; Eosinophils # (A) 0.1 k/uL (0-0.7); Eosinophils % (A) 2 %; HCT 34.2 % (39.0-53.0); HGB 11.2 gm/dL (13.0-17.5); Luc # (Auto) 0.11; Luc % (Auto) 2; Lymphocytes # (A) 0.9 k/uL (1.0-4.8); Lymphocytes % (A) 15 %; MCH 31.2 pg (25.0-35.0); MCHC 32.8 g/dL (31.0-37.0); Mean Platelet Volume 8.1; Monocytes # (A) 0.3 k/uL (0-1.0); Monocytes % (A) 5 %; Neutrophils # (A) 4.8 k/uL (1.3-7.7); Neutrophils % (A) 77 %; RBC 3.61 m/uL (4.30-5.90); RDW 14.3 % (11.5-15.5); WBC 6.2 k/uL (3.8-10.6)
--- NOTE | 2017-04-20 08:50 | PN ---
DATE OF SERVICE: 04/19/2017 ATTENDING NOTE: This patient was seen and examined by me earlier today. I reviewed the note of my nurse practitioner, Ms. Robbins. Reviewed, discussed additional findings below. This patient admitted with UTI, severe sepsis, renal failure, bilateral hydronephrosis. Renal ( ). Patient actually walked in the hallway a bit. Did tolerate some diet. On examination, far more awake and talking. LUNGS: Decreased breath sounds. CARDIOVASCULAR: First and second sounds normal. DERMATOLOGICAL: Superficial wound to the gluteal folds. INVESTIGATIONS: BUN 33 creatinine 1.82. Accu-Cheks are noted. ASSESSMENT: 1. Acute urinary tract infection with possible sepsis, present on admission. Cultures growing Klebsiella oxytoca. 2. Hypoalbuminemia from protein calorie malnutrition, moderate, from decreased oral intake. 3. Acute renal failure with obstructive component prerenal, bilateral hydronephrosis, improving. PLAN: Continue current medication and treatment plan. Depending on how much patient walks, how he does, which is improving we will decide final disposition. Encouraged to be out of bed.
[2017-04-20 08:55] LABS: Calcium 7.5 mg/dL (8.4-10.2); Potassium 3.7 mmol/L (3.5-5.1)
--- NOTE | 2017-04-20 10:37 | P.PN ---
Subjective Patient is seen in follow-up for acute kidney injury. Creatinine was 4.5 on admission and is down to 1.6 today. He was noted to have obstructive uropathy and currently has a To catheter in place. He is also being treated for a Klebsiella urinary tract infection. He is currently resting in bed. Oral intake is good. No vomiting or diarrhea. He was also hyponatremic on admission which is now resolved. Vital signs are stable. General: The patient appeared well nourished and normally developed. HEENT: Head exam is unremarkable. Neck is without jugular venous distension. LUNGS: Lungs are clear to auscultation and percussion. Breath sounds decreased. HEART: Rate and Rhythm are regular. First and second heart sounds normal. No murmurs, rubs or gallops. ABDOMEN: Abdominal exam reveals normal bowel sounds. Non-tender and non- distended. No evidence of peritonitis. EXTREMITITES: No clubbing, cyanosis, or edema. Objective - Vital Signs Vital signs: Vital Signs Temp 97.3 F L 04/20/17 07:00 Pulse 73 04/20/17 07:00 Resp 16 04/20/17 07:00 BP 111/69 04/20/17 07:00 Pulse Ox 100 04/20/17 07:00 Intake & Output 04/19/17 04/20/17 04/20/17 18:59 06:59 18:59 Output Total 1950 Balance -1950 Output: Urine 1950 Other: Voiding Method Indwelling Catheter Indwelling Catheter Indwelling Catheter # Bowel Movements 1 - Labs CBC & Chem 7: 04/20/17 08:23 04/20/17 08:23 Labs: Abnormal Lab Results - Last 24 Hours (Table) 04/19/17 04/19/17 04/20/17 Range/Units 12:06 21:01 07:12 RBC (4.30-5.90) m/uL Hgb (13.0-17.5) gm/dL Hct (39.0-53.0) % Lymphocytes # (1.0-4.8) k/uL BUN (9-20) mg/dL Creatinine (0.66-1.25) mg/dL Glucose (74-99) mg/dL POC Glucose (mg/dL) 148 H 149 H 106 H (75-99) mg/dL Calcium (8.4-10.2) mg/dL 04/20/17 04/20/17 Range/Units 08:23 08:23 RBC 3.61 L (4.30-5.90) m/uL Hgb 11.2 L (13.0-17.5) gm/dL Hct 34.2 L (39.0-53.0) % Lymphocytes # 0.9 L (1.0-4.8) k/uL BUN 29 H (9-20) mg/dL Creatinine 1.60 H (0.66-1.25) mg/dL Glucose 126 H (74-99) mg/dL POC Glucose (mg/dL) (75-99) mg/dL Calcium 7.5 L (8.4-10.2) mg/dL Microbiology - Last 24 Hours (Table) 04/13/17 19:47 Blood Culture - Final Blood No Growth after 144 hours Assessment and Plan Plan: Assessment: #1. Nonoliguric acute kidney injury secondary to obstructive uropathy. Improving. Creatinine down to 1.6 today. Unclear as to what his baseline renal function is. #2. Obstructive uropathy status post To catheter placement. #3. Hyponatremia secondary to urinary retention. Resolved. #4. Klebsiella UTI maintained on antibiotics. Next Plan: Maintain To catheter. Avoid nephrotoxic agents and hypotensive episodes. Stable to be discharged home from nephrology standpoint and to follow-up as an outpatient in the next 2 weeks.
[2017-04-20 12:12] LABS: Glucose,Whole Blood 92 mg/dL (75-99)
[2017-04-20 17:17] LABS: Glucose,Whole Blood 106 mg/dL (75-99)
[2017-04-20 20:57] LABS: Glucose,Whole Blood 198 mg/dL (75-99)
--- NOTE | 2017-04-20 23:24 | P.PN ---
Progress Note - Text DATE OF SERVICE: 04/20/2017 PRESENTING COMPLAINT: Acute UTI, severe sepsis severe renal failure bilateral hydronephrosis. INTERVAL HISTORY: 61-year-old male with acute UTI, severe sepsis severe renal failure bilateral hydronephrosis. To catheter remains with good output. Patient appears more lively today, [id number] at the bedside. Able to tolerate some of his diet about 75%, ambulatory in the room and mercedes ways and uses a walker. Discussion regarding discharge planning to place at the bedside with patient and family member. Encouraged family to take patient to their home for continued support. Questions asked regarding rehab, explained patient doesn't really require those types of services at this time. Patient really requires social support. REVIEW OF SYSTEMS: Done for constitutional ,cardiovascular, GI, pulmonary with relevant findings as above. CURRENT MEDICATIONS , Lovenox, Ativan, Lopressor. PHYSICAL EXAM: VITAL SIGNS: . GENERAL APPEARANCE: . Lying in bed, appears comfortable. EYES: Pupils equal. Conjunctiva normal. NECK: JVD not raised. Mass not palpable. RESPIRATORY: Respiratory effort normal. Lungs decreased bases to auscultation. CARDIOVASCULAR: First and second sounds normal. No edema. ABDOMEN: Soft. Liver and spleen not palpable. Mild tenderness. No mass palpable. PSYCHIATRY: Alert and oriented x3. Mood and affect normal. INTEGUMENT: Patient has a superficial wound to his gluteal folds, bloody red tender .. INVESTIGATIONS: 97.3 temperature, pulse 73 respirations 16 blood pressure 111/69, oxygen saturation 100% on room air. ASSESSMENT: Acute urinary tract infection with possible sepsis, present on admission. Cultures growing Klebsiella oxytoca Hypoalbuminemia from protein calorie malnutrition moderate from decreased oral intake. Alcoholic hepatitis. Acute renal failure with obstructive component and prerenal component of bilateral hydronephrosis improving Metabolic acidosis from renal failure. Hyponatremia likely hypoosmolar in an alcoholic but decrease salt intake. Chronic alcoholism. Medical debility, multifactorial. Bladder outlet obstruction. Hypokalemia, resolved PLAN: Continue with medication and treatment plan, follow electrolytes closely,. . Discharge planning continues as well likely will go with family member upon discharge. MANAGER RESOURCE statement: Patient was seen and examined by nurse practitioner Janice Robbins in all elements of the case discussed with attending Dr. Dickson
[2017-04-21 07:15] LABS: Glucose,Whole Blood 105 mg/dL (75-99)
[2017-04-21] MEDS: INSULIN LISPRO (humaLOG) 300 UNIT/3 ML VIAL SQ SCH ×2 (07:43→13:15)
[2017-04-21 08:41] LABS: Basophils % (A) 0 %; CH 32.3; CHCM 34.9; Eosinophils # (A) 0.1 k/uL (0-0.7); Eosinophils % (A) 2 %; HCT 34.9 % (39.0-53.0); HDW 2.64; HGB 11.5 gm/dL (13.0-17.5); Luc # (Auto) 0.17; Luc % (Auto) 3; Lymphocytes # (A) 1.1 k/uL (1.0-4.8); Lymphocytes % (A) 17 %; MCH 30.7 pg (25.0-35.0); Mean Platelet Volume 8.2; Monocytes # (A) 0.3 k/uL (0-1.0); Monocytes % (A) 4 %; Neutrophils # (A) 4.8 k/uL (1.3-7.7); Neutrophils % (A) 74 %; RBC 3.75 m/uL (4.30-5.90); RDW 14.1 % (11.5-15.5); WBC 6.6 k/uL (3.8-10.6); WBC (Perox) 6.85
[2017-04-21 09:07] LABS: Calcium 7.9 mg/dL (8.4-10.2)
[2017-04-21] MEDS: CEPHALEXIN 250 MG CAP PO SCH ×2 (09:48→15:29)
[2017-04-21] MEDS: DIAZEPAM 2 MG TAB PO SCH ×2 (09:48→15:29)
[2017-04-21] MEDS: ENOXAPARIN 40 MG/0.4 ML SYRINGE SQ SCH (09:49)
[2017-04-21] MEDS: METOPROLOL TARTRATE 12.5 MG TAB PO SCH (09:49)
--- NOTE | 2017-04-21 10:03 | P.PN ---
Subjective Patient is seen in follow-up for acute kidney injury. Creatinine was 4.5 on admission and came down to 1.6 as of 04/20. It is at 1.78 today. He was noted to have obstructive uropathy and To catheter was discontinued yesterday. He continues to have urinary retention. He is also being treated for a Klebsiella urinary tract infection. He is currently resting in bed. Oral intake is good. No vomiting or diarrhea. He was also hyponatremic on admission which is now resolved. Vital signs are stable. General: The patient appeared well nourished and normally developed. HEENT: Head exam is unremarkable. Neck is without jugular venous distension. LUNGS: Lungs are clear to auscultation and percussion. Breath sounds decreased. HEART: Rate and Rhythm are regular. First and second heart sounds normal. No murmurs, rubs or gallops. ABDOMEN: Abdominal exam reveals normal bowel sounds. Non-tender and non- distended. No evidence of peritonitis. EXTREMITITES: No clubbing, cyanosis, or edema. Objective - Vital Signs Vital signs: Vital Signs Temp 98.7 F 04/21/17 07:00 Pulse 66 04/21/17 07:00 Resp 14 04/21/17 07:00 BP 110/66 04/21/17 07:00 Pulse Ox 98 04/21/17 07:00 Intake & Output 04/20/17 04/21/17 04/21/17 18:59 06:59 18:59 Intake Total 240 Output Total 1000 850 100 Balance -1000 -610 -100 Intake: Oral 240 Output: Urine 1000 700 100 Post Void Residual 150 Other: Voiding Method Indwelling Catheter # Voids 1 # Bowel Movements 1 1 - Labs CBC & Chem 7: 04/21/17 08:16 04/21/17 08:16 Labs: Abnormal Lab Results - Last 24 Hours (Table) 04/20/17 04/20/17 04/21/17 Range/Units 17:04 20:55 06:52 RBC (4.30-5.90) m/uL Hgb (13.0-17.5) gm/dL Hct (39.0-53.0) % Carbon Dioxide (22-30) mmol/L BUN (9-20) mg/dL Creatinine (0.66-1.25) mg/dL Glucose (74-99) mg/dL POC Glucose (mg/dL) 106 H 198 H 105 H (75-99) mg/dL Calcium (8.4-10.2) mg/dL 04/21/17 04/21/17 Range/Units 08:16 08:16 RBC 3.75 L (4.30-5.90) m/uL Hgb 11.5 L (13.0-17.5) gm/dL Hct 34.9 L (39.0-53.0) % Carbon Dioxide 21 L (22-30) mmol/L BUN 27 H (9-20) mg/dL Creatinine 1.78 H (0.66-1.25) mg/dL Glucose 125 H (74-99) mg/dL POC Glucose (mg/dL) (75-99) mg/dL Calcium 7.9 L (8.4-10.2) mg/dL Assessment and Plan Plan: Assessment: #1. Nonoliguric acute kidney injury secondary to obstructive uropathy. Improved since admission. Creatinine Unclear as to what his baseline renal function is. #2. Obstructive uropathy status post To catheter placement and removal. Continues to have urinary retention. #3. Hyponatremia secondary to urinary retention. Resolved. #4. Klebsiella UTI maintained on antibiotics. Plan: Patient will either need a To catheter reinserted or need to learn how to perform self catheterizations at home. Urology following. Avoid nephrotoxic agents and hypotensive episodes. Stable to be discharged home from nephrology standpoint and to follow-up as an outpatient in the next 2 weeks.
[2017-04-21 12:16] LABS: Glucose,Whole Blood 161 mg/dL (75-99)
[2017-04-21 15:06] VITALS: BP 115/69; PULSE 75; RESP 18; TEMP 97.6
--- NOTE | 2017-04-21 15:12 | PN ---
DATE OF SERVICE: 04/20/2017 ATTENDING NOTE: This patient was seen and examined by me yesterday on 04/20/2017. I reviewed the note of my nurse practitioner, Ms. Robbins. Discussed, reviewed additional findings as below. This patient presented with severe UTI, severe sepsis, renal failure, bilateral hydronephrosis. Doing much better; up in the hallway. Patient's [id number] at the bedside. Tolerating a diet better. There was a discussion between the family members about if they will take him home as there is a dog in the house to who the patient has not had the best relationship with and that could be a limiting factor. ON EXAMINATION: LUNGS: Decreased breath sounds. CARDIOVASCULAR: First and second sounds normal. PSYCH: Alert and oriented x3. INVESTIGATIONS: BUN 29, creatinine 1.60. ASSESSMENT: 1. Acute urinary tract infection with sepsis, present on admission. Culture growing Klebsiella oxytoca with clinical improvement. 2. Acute renal failure with obstructive component prerenal with bilateral hydronephrosis, improving. PLAN: I had a long talk with the patient and the [id number] ( ) different options. Patient may be at this point going home. He is able to take care of himself. He is able to ambulate well in the hallway. There will be help from the family. To catheter will be discontinued and see how he does.
--- NOTE | 2017-04-21 22:29 | P.DS ---
Providers Date of admission: 04/13/17 20:25 Expected date of discharge: 04/21/17 Attending physician: Lennox Dickson Consults: 04/13/17 19:50 Consult Physician Stat Consulting Provider: Michelle Antunez Consult Reason/Comments: Acute renal failure Do you want consulting provider notified?: Yes 04/14/17 10:08 Consult Physician Stat Consulting Provider: Scooby Harley Consult Reason/Comments: known to service ulcer rectum history of colon cancer Do you want consulting provider notified?: Yes 04/16/17 07:59 Consult Physician Routine Consulting Provider: Dante Escobar Consult Reason/Comments: Bilateral Hydronephrosis Do you want consulting provider notified?: Yes Primary care physician: Stated None Hospital Course: FINAL DIAGNOSES: Acute urinary tract infection with sepsis, present on admission cultures growing Klebsiella oxytoca Hypoalbuminemia from protein calorie malnutrition moderate from decreased oral intake. Alcoholic hepatitis. Acute renal failure with obstructive component of prerenal component of bilateral hydronephrosis improving Metabolic acidosis from renal failure. Hyponatremia likely hypoosmolar and an alcoholic but decrease salt intake. Chronic alcoholism, Medical debility, multifactorial. Bladder outlet obstruction. Hypokalemia, resolved. HOSPTIAL COURSE: This is a 61-year-old patient who presented with acute urinary tract infection , sepsis, found to have elevated lipase, alcoholic hepatitis, severe acute renal failure. Initiated IV fluids, IV ceftriaxone, lab values drawn. Patient has a known history of alcohol use had visible signs and symptoms of alcohol withdrawal. Valium and beta maryana ordered for symptoms of withdrawal. Patient also noted to have an ulcer in the anorectal area. Nephrology, urology and surgery consulted for these concerns. Lab values improved, kidney function improved, patient responded to antibiotic therapy. Symptoms of withdrawal subsided. To catheter removed, patient able to urinate however not fully. Patient was therefore taught to straight catheterize himself. Given patient's history of alcohol use, it was felt that patient should have support from family. Discussion had with sister and [id number] regarding taking in the patient ,however unable to do so secondary to issues with household animal. Family prepared to provide necessary support if patient returns to his own home. Patient's walking in the hallways tolerating his diet moved his bowels, feels ready to go home. Patient once again counseled about smoking cessation and complete and total cessation of alcohol use. Patient reassured medical staff of his desired to be alcohol free. PHYSICAL EXAM: CARDIOVASCULAR: First and second sounds noted trace edema to bilateral lower extremities RESPIRATORY: Respiratory effort normal, lungs clear to auscultation. GI: Abdomen soft nontender liver and spleen not palpable MUSKULOSKELETAL: Ambulatory with a walker, steady gait., strength equal bilaterally : able to initiate stream, cant fully empty bladder Patient was seen and examined by nurse practitioner Janice Robbins in all elements of the case discussed with attending Dr. Dickson DISOPSITION: Home with home care and the care and support his family. Pertinent Studies: Ultrasound kidney bladder ureters: Bilateral severe hydronephrosis, bladder is distended which contains a fluid level which may represent debris, correlate for infection or previous hemorrhage. Limited assessment of the prostate which appears to demonstrate areas of calcification. Patient Condition at Discharge: Stable Plan - Discharge Summary New Discharge Prescriptions: New Cephalexin [Keflex] 250 mg PO TID #21 cap Discharge Medication List Cephalexin [Keflex] 250 mg PO TID #21 cap 04/21/17 [Rx] Follow up Appointment(s)/Referral(s): Michelle Antunez MD [STAFF PHYSICIAN] - 2 Weeks (Office will call you with appointment time. ) Filiberto Draper MD [STAFF PHYSICIAN] - 3 Days [facility], [NON-STAFF] - As Needed Jose D Welch MD [STAFF PHYSICIAN] - 04/30/17 1:00 pm Ambulatory/Diagnostic Orders: Basic Metabolic Panel [LAB.AMB] Time Frame: 1 Week, Location: Determined By Patient Patient Instructions/Handouts: Acute Kidney Injury (DC), How to Catheterize Yourself (Man) (GEN) Activity/Diet/Wound Care/Special Instructions: [facility] - [phone] - Catheter kits Straight cath yourself every 4 hours, measuring urine out each time. Dr Welch recommending establishing routine that maintains urine in bladder to be not greater than 500 ml at any given time. Cardiac, diabetic diet. NO alcohol, references provided. Discharge Disposition: HOME WITH HOME HEALTH SERVICES
--- NOTE | 2017-04-24 12:33 | DS ---
DATE OF ADMISSION: 04/13/2017 DATE OF DISCHARGE: 04/21/2017 ATTENDING NOTE: This patient was seen and examined by me on 04/21/2017. I reviewed the note of my nurse practitioner Ms. Robbins. Discussed and reviewed additional findings below. The patient presented with acute severe renal failure with an obstructed component. Creatinine was up to 4.59, did come down to 1.78. Patient also had bilateral hydronephrosis. Patient ( ) some urine being discharged home with Flomax and straight catheter. Patient did have abdominal ultrasound that did show bilateral severe hydronephrosis and a distended bladder. CONSULTATION: Dr. Antunez from nephrology; Dr. Harley general surgery. Patient at the time of discharge was up and about. Patient is an alcoholic. Was counseled extensively, treated for withdrawals. Was sober and communicating fairly well. ( ) clearly they did not want to proceed anymore. Patient will be getting support from his family. ON EXAM: LUNGS: Decreased breath sounds. CARDIOVASCULAR: First and second sounds normal. DISCHARGE MEDICATION: Keflex 250 mg p.o. t.i.d. for 21 days. Follow up with Dr. Antunez in 2 weeks, Dr. Draper in 3 days, Dr. Welch on 04/30/17. [facility] in one week. [facility] is coordinating the catheter kits. Discharge planning more than 35 minutes.
== END 2017-04-21 16:15 | disposition home health service (06) | DRG 871 ==
LOC: EC 14:53 → 4MS4W 20:25
PROVIDERS: ADMIT Hospitalist; ATTEND Hospitalist
PROC: HZ2ZZZZ Detoxification Services for Substance Abuse Treatment (ICD-10-PCS; principal; 2017-04-13)
DX: A41.50 Gram-negative sepsis, unspecified (principal); N17.0 Acute kidney failure with tubular necrosis; E87.2 Acidosis; L89.302 Pressure ulcer of unspecified buttock, stage 2; E44.0 Moderate protein-calorie malnutrition; E11.622 Type 2 diabetes mellitus with other skin ulcer; E87.1 Hypo-osmolality and hyponatremia; R16.0 Hepatomegaly, not elsewhere classified; K70.10 Alcoholic hepatitis without ascites; N39.0 Urinary tract infection, site not specified; N13.30 Unspecified hydronephrosis; N17.8 Other acute kidney failure; F10.239 Alcohol dependence with withdrawal, unspecified; R65.20 Severe sepsis without septic shock; N32.0 Bladder-neck obstruction; E87.6 Hypokalemia; E86.0 Dehydration; E86.1 Hypovolemia; E11.9 Type 2 diabetes mellitus without complications; E88.09 Other disorders of plasma-protein metabolism, not elsewhere classified; N40.1 Benign prostatic hyperplasia with lower urinary tract symptoms; N39.41 Urge incontinence; R39.14 Feeling of incomplete bladder emptying; R11.0 Nausea; M51.34 Other intervertebral disc degeneration, thoracic region; S30.817A Abrasion of anus, initial encounter; R06.02 Shortness of breath; R53.81 Other malaise; R53.1 Weakness; R33.8 Other retention of urine; R15.9 Full incontinence of feces; R19.7 Diarrhea, unspecified; R74.8 Abnormal levels of other serum enzymes; Z83.3 Family history of diabetes mellitus; Z90.49 Acquired absence of other specified parts of digestive tract; Z68.22 Body mass index [BMI] 22.0-22.9, adult; Z71.3 Dietary counseling and surveillance; Z71.6 Tobacco abuse counseling; Z85.038 Personal history of other malignant neoplasm of large intestine; Y90.0 Blood alcohol level of less than 20 mg/100 ml
CPT/HCPCS: 36415; 71020; 74000; 76770; 80048; 80051; 80053; 80306; 80320; 81001; 82009; 82150; 82550; 82553; 83036; 83690; 83935; 84300; 84484; 85025; 85379; 85610; 85730; 87040; 87077; 87086; 87186; 87324; 93005; 96361; 96365; 96366; 96375; 99285